=== PATIENT | male | born 1970 | race Asian ===

== ENCOUNTER 2016-07-19 17:13 | Emergency (ER) | payer MEDICARE ==
[~2016-07-19] VITALS: Ht 152.4 cm; Wt 64.0 kg
[~2016-07-19 17:13] MED LIST: ADV25050 INHALATION; AMLO5TAB4 PO; ASPI81TA3 PO; ATOR20TA38 PO; LEVO500T72 PO; METO-448 PO; PRED20TA PO; VALS80TA2 PO
[2016-07-19 19:38] VITALS: Ht 152.4 cm; Wt 64.0 kg
[2016-07-19] MEDS ORDERED: BACTDS PO (19:49)
[2016-07-19] MEDS ORDERED: IBUP-1542 PO (19:49)
[2016-07-19] MEDS ORDERED: CEPH-443 PO (19:49)
[2016-07-19] MEDS ORDERED: CIPROFLOXACIN 0.3% 2.5 ML OPH RIGHT EYE ONE (20:00)
[2016-07-19] MEDS ORDERED: CEFTRIAXONE 1 GM INJ IM ONE (20:00)
[2016-07-19] MEDS ORDERED: IBUPROFEN 600 MG TAB PO ONE (20:00)
--- NOTE | 2016-07-19 20:03 | ERD ---
ER Documentation Chief Complaint Date/Time DATE: 07/19/16 TIME: 19:53 Chief Complaint swelling around right eye x 2 days HPI 46-year-old man complaining of 2 days of red swollen lower eyelid on the right with increased epiphora on the right side. He denies purulent discharge from the eyes. He does have a history of chronic congenital hydrocephalus and bilateral proptosis, and wears CPAP at night and when questioned states the CPAP has in fact been riding a little higher on his face on the right side compared to the left. He denies direct trauma, no fevers or chills, no chest pain or shortness of breath. ROS All systems reviewed and are negative except as per history of present illness. Medications Home Meds Active Scripts Ibuprofen* (Motrin*) 600 Mg Tab, 600 MG PO Q8 for PAIN AND/OR INFLAMMATION, #30 TAB Prov:EVANS CORDERO MD 07/19/16 Sulfamethoxazole-Trimethoprim* (Bactrim* DS) 800-160 Mg Tab, 1 TAB PO DAILY for 7 Days, TAB Prov:EVANS CORDERO MD 07/19/16 Cephalexin* (Keflex*) 500 Mg Capsule, 500 MG PO QID for 7 Days, CAP Prov:EVANS CORDERO MD 07/19/16 Ibuprofen* (Motrin*) 600 Mg Tab, 600 MG PO Q8 for PAIN AND/OR INFLAMMATION, #30 TAB Prov:EVANS CORDERO MD 07/19/16 Levofloxacin* (Levaquin*) 500 Mg Tablet, 500 MG PO DAILY for 7 Days, TAB Prov:ANDREEA BERNARDO NP 09/28/15 Prednisone* (Prednisone*) 20 Mg Tab, 20 MG PO DAILY for 2 Days, TAB Prov:ANDREEA BERNARDO NP 09/28/15 Salmeterol Xinaf/Fluticasone* (Advair*) 250-50 Diskus Inhaler, 1 INH INHALATION BID for 30 Days, INHALER Prov:ANDREEA BERNARDO NP 09/28/15 Metoprolol Tartrate* (Lopressor*) 25 Mg Tab, 25 MG PO BID for 30 Days, TAB Prov:ANDREEA BERNARDO NP 09/28/15 Atorvastatin Calcium* (Atorvastatin Calcium*) 20 Mg Tab, 20 MG PO HS for 30 Days , TAB Prov:ANDREEA BERNARDO NP 09/28/15 Amlodipine Besylate* (Norvasc*) 5 Mg Tab, 5 MG PO BID for 30 Days, TAB Prov:ANDREEA BERNARDO GLASS CUTTER 09/28/15 Aspirin (Aspirin) 81 Mg Chew, 81 MG PO DAILY, #30 TAB Prov:ANDREEA BERNARDO GLASS CUTTER 09/28/15 Reported Medications Valsartan* (Diovan*) 80 Mg Tablet, 80 MG PO QHS, TAB 09/20/15 Allergies Allergies: Coded Allergies: No Known Allergy (Unverified , 09/20/15) PMhx/Soc Chronic hydrocephalus and severe congenital bilateral proptosis, scoliosis, pulmonary hypertension, systemic hypertension, chronic obstructive pulmonary disease, CPAP use at night History of Surgery: Yes (SHUNT REVISION X 7, SPINE SX, HERNIA REPAIR) Anesthesia Reaction: No Hx Neurological Disorder: No Hx Respiratory Disorders: Yes (COPD) Hx Cardiac Disorders: Yes (HTN) Hx Psychiatric Problems: No Hx Miscellaneous Medical Probl: Yes (SLEEP APNEA) Hx Alcohol Use: No Hx Substance Use: No Hx Tobacco Use: No FmHx Family History: No diabetes Physical Exam Vitals Vital Signs Date Time Temp Pulse Resp B/P Pulse Ox O2 Delivery O2 Flow Rate FiO2 07/19/16 19:38 98.2 99 20 163/96 100 Physical Exam GENERAL: Well-developed, well-nourished, no apparent distress HEENT: Patient has mild bilateral conjunctival injection and skin erythema and induration to the right lower eyelid concerning for periorbital cellulitis. He also has severe hydrocephalus and bilateral proptosis which is congenital. No cervical spine tenderness or step-off deformities, no goiter, no jaundice or icterus, extraocular movements intact without pain. No submandibular induration , and no pharyngeal erythema NEURO: Alert and oriented 3, cranial nerves II through XII intact bilaterally, pupils equal round reactive to light, no focal deficits or facial asymmetry, sensation intact distally Strength 5/5 in upper and lower extremities bilaterally CARDIAC: Regular rate and rhythm, no murmurs rubs or gallops LUNGS: Clear bilaterally no wheezing crackles or stridor ABDOMEN: Soft nontender, no guarding, no rigidity, no rebound, no psoas sign no obturator sign. Normoactive bowel sounds SKIN: There is soft tissue skin erythema and mild induration to the right lower eyelid and dry, scaly discharge to the right medial canthus without active purulent discharge, no ulcers or bleeding. EXTREMITIES: No clubbing cyanosis or edema, calves are bilaterally symmetrical, no Homans sign, no popliteal cord sign. Distal pulses equal and bilateral PSYCH: Normal affect without agitation or irritability Results 24 hrs Current Medications Medications (Trade) Dose Ordered Sig/[place] Route PRN Reason Start Time Stop Time Status Last Admin Dose Admin Ceftriaxone Sodium (Rocephin) 1 gm ONCE ONCE IM 07/19/16 20:00 07/19/16 20:01 Ciprofloxacin HCl (Ciloxan 0.3% Oph) 2 drop ONCE ONCE RIGHT EYE 07/19/16 20:00 07/19/16 20:01 Ibuprofen (Motrin) 600 mg ONCE ONCE PO 07/19/16 20:00 07/19/16 20:01 Procedures/[facility] I administered ibuprofen 600 mg p.o., ceftriaxone 1 g intramuscular injection, and ciprofloxacin ophthalmic drops to the right eye. The ciprofloxacin ophthalmic drops were given to the patient and he and his metal can inspector who was at the bedside were instructed to use 2 drops on the right eye twice a day for the next week. This will be in addition to the oral antibiotics he uses. Patient does use CPAP at night and I suspect the mask has been riding high on his face and has abraded the right lower eyelid causing an early cellulitis, which at this time can be treated as an outpatient with antibiotics. Differential diagnoses considered, included but not limited to pre-versus post septal cellulitis, sepsis, stroke, meningitis, encephalitis, pneumonia, appendicitis, cholecystitis, bowel obstruction, pyelonephritis, nephrolithiasis , cystitis, as well as metabolic, hematologic, and electrolyte abnormalities. As well as abscess, cellulitis, fractures, and dislocations. Patient feels much better at this time, and vital signs are normal, symptoms have improved. I did give strict instructions to return to the ED if symptoms continue or worsen, patient will otherwise follow-up with primary care physician. Patient understood instructions and agreed to plan. Departure Diagnosis: Primary Impression: Periorbital cellulitis Laterality: right Qualified Code: L03.213 - Periorbital cellulitis of right eye Additional Impressions: Blepharitis Blepharitis type: squamous Laterality: right Eyelid: lower Qualified Code : H01.022 - Squamous blepharitis of right lower eyelid Proptosis Condition: Good Patient Instructions: Blepharitis, Kassidy-Orbital Cellulitis EVANS CORDERO MD Jul 19, 2016 20:03
[2016-07-19] MEDS ORDERED: VALS160T20 PO (20:27)
[2016-07-19] MEDS ORDERED: LIDOCAINE 1% (MDV) 20 ML INJ ONE (20:40)
[2016-07-19 21:11] VITALS: BP 158/88; PULSE 95; RESP 20; TEMP 98.2
== END 2016-07-19 21:12 | disposition home or self-care (01) ==
LOC: E/R 17:13
DX: L03.213 Periorbital cellulitis (principal); R40.2142 Coma scale, eyes open, spontaneous, at arrival to emergency department; R40.2252 Coma scale, best verbal response, oriented, at arrival to emergency department; R40.2362 Coma scale, best motor response, obeys commands, at arrival to emergency department; I10 Essential (primary) hypertension; H01.022 Squamous blepharitis right lower eyelid; J44.9 Chronic obstructive pulmonary disease, unspecified; H05.20 Unspecified exophthalmos; Z79.82 Long term (current) use of aspirin
CPT/HCPCS: 96372; J0696

== ENCOUNTER 2017-10-11 19:26 | Emergency (ER) | END 2017-10-11 21:09 | disposition home or self-care (01) ==